=== PATIENT | female | born 1985 | race Asian ===

== ENCOUNTER 2017-01-15 16:02 | Emergency (ER) | payer OTHER ==
[2017-01-15 16:05] VITALS: BP 121/77; PULSE 96; TEMP 98.5; BMI 22.1
--- NOTE | 2017-01-15 17:08 | PDOC ---
History of Present Illness - General Chief Complaint: Sore Throat Stated Complaint: FEVER, SORE THROAT Time Seen by Provider: 01/15/17 16:07 History Source: Patient Exam Limitations: No Limitations - History of Present Illness Initial Comments: 01/15/17 17:05 31-year-old female presents the ED with complaints of sore throat and subjective fever since yesterday. Patient states her mother with similar symptoms and had to take Keflex took an antibiotic. Patient states is currently breast-feeding but denies any other complaints presently Timing/Duration: reports: other (Yesterday) Severity: reports: mild Possible Cause: Yes: no prior episodes Associated Symptoms: reports: fever/chills, nasal congestion Past History - Past Medical History Allergies/Adverse Reactions: Allergies Allergy/AdvReac Type Severity Reaction Status Date / Time No Known Allergies Allergy Verified 01/15/17 16:05 Home Medications: Ambulatory Orders NK [No Known Home Medication] 01/15/17 Asthma: No Cancer: No Cardiac Disorders: No Diabetes: No HTN: No Seizures: No Thyroid Disease: No Other medical history: denies - Reproductive History Is Patient Now?: No - Psycho/Social/Smoking Cessation Hx Anxiety: No Suicidal Ideation: No Smoking History: Never smoked Have you smoked in the past 12 months: No Information on smoking cessation initiated: No Hx Alcohol Use: No Drug/Substance Use Hx: No Substance Use Type: None Hx Substance Use Treatment: No Patient Lives Alone: No Lives with/in: spouse/SO Review of Systems - Review of Systems Able to Perform ROS?: Yes Constitutional: Yes: Fever HEENTM: Yes: Throat Pain Respiratory: No: Symptoms reported Cardiac (ROS): No: Symptoms Reported ABD/GI: No: Symptoms Reported Musculoskeletal: No: Symptoms Reported Integumentary: No: Symptoms Reported Neurological: No: Headache *Physical Exam - Vital Signs Last Vital Signs Temp Pulse Resp BP Pulse Ox 98.5 F 96 H 18 121/77 98 01/15/17 16:04 01/15/17 16:04 01/15/17 16:04 01/15/17 16:04 01/15/17 16:04 - Physical Exam General Appearance: Yes: Nourished, Appropriately Dressed. No: Apparent Distress HEENT: positive: EOMI, MAYNOR, TMs Normal, Pharyngeal Erythema (mild. no petechiae ). negative: Tonsillar Exudate, Tonsillar Erythema Neck: positive: Supple. negative: Lymphadenopathy (R), Lymphadenopathy (L) Respiratory/Chest: positive: Lungs Clear, Normal Breath Sounds. negative: Respiratory Distress, Accessory Muscle Use Cardiovascular: positive: Regular Rhythm, Regular Rate. negative: Murmur Integumentary: positive: Normal Color, Warm, Moist Neurologic: positive: Motor Strength 5/5 (ambulatory) Medical Decision Making - Medical Decision Making 01/15/17 17:07 Patient with subjective fever and sore throat since yesterday. Patient with mild erythema to the posterior pharynx. Patient ordered for rapid strep. 01/15/17 17:26 Rapid strep negative. Patient will be sent home with supportive care including plenty of fluids, soft foods and Tylenol as needed *DC/Admit/Observation/Transfer Diagnosis at time of Disposition: Sore throat - Discharge Dispostion Disposition: HOME Condition at time of disposition: Good - Referrals Referrals: Edwin Corrales MD [Primary Care Provider] - - Patient Instructions Printed Discharge Instructions: Sore Throat Additional Instructions: Strep test was negative. I advised her to drink plenty of fluids, soft nonabrasive foods and take Tylenol as needed for discomfort. If your culture comes back positive, you will receive a phone call in 2 days to start antibiotics.
== END 2017-01-15 17:41 | disposition home or self-care (01) ==
LOC: JERFT 16:02
DX: J02.9 Acute pharyngitis, unspecified (principal)
CPT/HCPCS: 87070; 87430; 99281-25

== ENCOUNTER 2017-07-14 18:42 | Emergency (ER) | payer OTHER ==
[2017-07-14 19:10] VITALS: BP 133/84; PULSE 89; TEMP 98.4; BMI 22.7
--- NOTE | 2017-07-14 21:13 | PDOC ---
History of Present Illness - General Chief Complaint: Vaginal Sxs Stated Complaint: VAGINAL PAIN Time Seen by Provider: 07/14/17 20:00 History Source: Patient Exam Limitations: No Limitations - History of Present Illness Initial Comments: 07/14/17 21:18 Itchiness of vaginal area History of present illness: Patient is a 31 year old female with no significant medical history here today complaining of itchiness of vaginal area labia majora minora for the last 2 days. Patient denies any vaginal discharge. Patient is sexually active with her . Patient denies any urinary symptoms , fever, abdominal pain or any dyspareunia. Patient denies any lesions on vaginal area. Patient denies any recent use of antibiotics. Patient is breast- feeding. Timing/Duration: intermittent (for 2 days) Severity: mild Associated Symptoms: reports: other (itchiness of labia minor/majora) Past History - Past Medical History Allergies/Adverse Reactions: Allergies Allergy/AdvReac Type Severity Reaction Status Date / Time No Known Allergies Allergy Verified 07/14/17 19:07 Home Medications: Ambulatory Orders NK [No Known Home Medication] 01/15/17 Asthma: No Cancer: No Cardiac Disorders: No Diabetes: No HTN: No Seizures: No Thyroid Disease: No - Suicide/Smoking/Psychosocial Hx Smoking History: Never smoked Have you smoked in the past 12 months: No Hx Alcohol Use: No Drug/Substance Use Hx: No Substance Use Type: None Hx Substance Use Treatment: No Review of Systems - Review of Systems Able to Perform ROS?: Yes Constitutional: No: Symptoms Reported HEENTM: No: Symptoms Reported Respiratory: No: Symptoms reported Cardiac (ROS): No: Symptoms Reported ABD/GI: No: Symptoms Reported : Yes: Other (itchiness of external vagina area X 2 dats). No: Burning, Dysuria, Discharge, Frequency, Flank Pain, Hematuria, Incontinence, Pain, Urgency Musculoskeletal: No: Symptoms Reported Integumentary: No: Symptoms Reported Neurological: No: Symptoms reported *Physical Exam - Vital Signs Last Vital Signs Temp Pulse Resp BP Pulse Ox 98.4 F 89 16 133/84 100 07/14/17 19:08 07/14/17 19:08 07/14/17 19:08 07/14/17 19:08 07/14/17 19:08 - Physical Exam General Appearance: Yes: Appropriately Dressed Respiratory/Chest: positive: Lungs Clear, Normal Breath Sounds. negative: Chest Tender, Respiratory Distress Cardiovascular: positive: Regular Rhythm, Regular Rate, S1, S2 Female Pelvic Exam: positive: cervical os closed, discharge (white thick ). negative: normal adnexa, normal size ovaries, CMT, lesions, Bartholin mass, Scalene Gland, adnexal tenderness, uterus, Urethra, vaginal bleeding Gastrointestinal/Abdominal: positive: Normal Bowel Sounds, Soft. negative: Tender, Organomegaly, Distended, Guarding, Rebound, Tenderness, Hernia, Mass, Hepatomegaly, Spleenomegaly Integumentary: positive: Normal Color Neurologic: positive: Alert, Normal Response Medical Decision Making - Medical Decision Making 07/14/17 21:20 Patient is a 31 year old female with no significant medical history here today complaining of itchiness of vaginal area labia majora minora for the last 2 days. Patient denies any vaginal discharge. Patient is sexually active with her . Patient denies any urinary symptoms, fever, abdominal pain or any dyspareunia. Patient denies any lesions on vaginal area. Patient denies any recent use of antibiotics. Patient is breast-feeding. Vaginal discharge external vaginal itchiness vaginitis lucia PLAN: urine hcg urinalyis chlamydia/GC amplification genital culture Laboratory Tests 07/14/17 07/14/17 21:00 21:09 Urine Color Straw Urine Appearance Clear Urine pH 5.0 Urine Protein Negative Urine Glucose (UA) Negative Urine Ketones Negative Urine Blood Negative Urine Nitrite Negative Urine Bilirubin Negative Urine Urobilinogen Negative Urine HCG, Qual Negative difucan 150 mg po now 07/14/17 21:50 *DC/Admit/Observation/Transfer Diagnosis at time of Disposition: Vaginitis due to Lucia - Discharge Dispostion Disposition: HOME Condition at time of disposition: Stable - Patient Instructions Additional Instructions: Follow-up with your grounding engineer for further evaluation as soon as possible Return to emergency room if symptoms worsen or new symptoms develop Do not have sexual relations for the next 5 days We will call you if any additional medication needs to be ordered due to pending lab results Patient voiced understanding of discharge instructions and all questions were answered
[2017-07-14 21:35] LABS: URINE APPEARANCE CLEAR; URINE BILIRUBIN NEGATIVE (NEGATIVE); URINE BLOOD NEGATIVE (NEGATIVE); URINE COLOR STRAW; URINE GLUCOSE (UA) NEGATIVE (NEGATIVE); URINE KETONE NEGATIVE (NEGATIVE); URINE NITRITE NEGATIVE (NEGATIVE); URINE PROTEIN NEGATIVE (NEGATIVE); URINE UROBILINOGEN NEGATIVE mg/dL (0.2-1.0)
[2017-07-14] MEDS ORDERED: FLUCONAZOLE 50 MG TABLET PO ONE (21:48)
[2017-07-14] MEDS ORDERED: FLUCONAZOLE 100 MG TABLET (UD) ONE (21:50)
[2017-07-14 23:02] LABS: URINE LEUK ESTERASE 1+ (NEGATIVE)
[2017-07-14 23:19] LABS: URINE BACTERIA FEW /hpf (NEGATIVE); URINE RBC 0-2 /hpf (0-3)
--- NOTE | 2017-07-18 07:24 | PDOC ---
Patient Follow-up (Call Back) - Post ED Follow - Up Chief Complaint: Vaginal Sxs Condition at time of discharge: Stable Disposition at time of original discharge: HOME Reason for Call Back: Abnwl. Microbiology (Pt with moderate amount of yeast on micro. Treated with diflucan in ED. No furthe treatment needed at this time.)
== END 2017-07-14 21:54 | disposition home or self-care (01) ==
LOC: JERFT 18:42
DX: B37.3 Candidiasis of vulva and vagina (principal)
CPT/HCPCS: 36415; 81003; 81015; 84703; 87070; 87086; 87205; 87491; 87591; 99281-25

== ENCOUNTER 2018-01-15 12:39 | Emergency (ER) | payer OTHER ==
[2018-01-15 12:47] VITALS: BP 120/76; PULSE 99; TEMP 98.4; BMI 23.0
--- NOTE | 2018-01-15 13:30 | PDOC ---
History of Present Illness - General Chief Complaint: Sore Throat Stated Complaint: THROAT PAIN Time Seen by Provider: 01/15/18 12:53 History Source: Patient Exam Limitations: No Limitations - History of Present Illness Initial Comments: 01/15/18 13:07 Patient is a 32-year-old female, denies any significant medical history currently on no medications presents for generalized body aches, sore throat, headache since yesterday. Patient reports on December 25 had similar symptoms saw PMD who started her on antibiotics, symptoms resolved, yesterday started having symptoms again. Patient denies any chest pain, is complaining of postnasal drip. Shortness of breath. No nausea vomiting or diarrhea. Past Medical History: Denies. Allergies: No known allergies Medications: None Family History: Non-contributory Social History: Denies smoking, alcohol use, or IVDU Review of Systems GENERAL/CONSTITUTIONAL: Tactile fever, body aches No weakness. No weight change. ] HEAD, EYES, EARS, NOSE AND THROAT: Watery eyes, postnasal drip, No change in vision. No ear pain or discharge. Sore throat CARDIOVASCULAR: No chest pain or shortness of breath. RESPIRATORY: No cough, wheezing, or hemoptysis. GASTROINTESTINAL: No nausea, vomiting, diarrhea or constipation. No rectal bleeding. GENITOURINARY: No dysuria, frequency, or change in urination. MUSCULOSKELETAL: No joint or muscle swelling or pain. No neck or back pain. SKIN AND BREASTS: No rash or easy bruising. NEUROLOGIC: No headache, vertigo, loss of consciousness, or loss of sensation. PSYCHIATRIC: No depression or anxiety. ENDOCRINE: No increased thirst. No abnormal weight change. HEMATOLOGIC/LYMPHATIC: No anemia, easy bleeding, or history of blood clots. ALLERGIC/IMMUNOLOGIC: No hives or skin allergy. No latex allergy. Physical Exam: GENERAL: The patient is awake, alert, and fully oriented, in no acute distress. EYES: Pupils equal, round and reactive to light, extraocular movements intact, sclera anicteric, conjunctiva clear. ENT: Ears normal, nares patent, oropharynx clear without exudates. Posterior throat, cobblestoning , Moist mucous membranes. No uvula deviation NECK: Normal range of motion, supple without lymphadenopathy, JVD, or masses. LUNGS: Breath sounds equal, clear to auscultation bilaterally. No wheezes, and no crackles. HEART: Regular rate and rhythm, normal S1 and S2 without murmur, rub or gallop. ABDOMEN: Soft, nontender, normoactive bowel sounds. No guarding, no rebound. No masses. No bruising or abrasions MUSCULOSKELETAL: Normal range of motion, no edema. No clubbing or cyanosis. No cords, erythema, or tenderness. No CVA Tenderness with fist palpation. NEUROLOGICAL: Cranial nerves II through XII grossly intact. Normal speech, normal gait. SKIN: Warm, Dry, normal turgor, no rashes or lesions noted. Past History - Past Medical History Allergies/Adverse Reactions: Allergies Allergy/AdvReac Type Severity Reaction Status Date / Time No Known Allergies Allergy Verified 07/14/17 19:07 Home Medications: Ambulatory Orders Loratadine [Claritin] 10 mg PO DAILY #30 tablet 01/15/18 Asthma: No Cancer: No Cardiac Disorders: No COPD: No DVT: No Diabetes: No HTN: No Seizures: No Thyroid Disease: No - Suicide/Smoking/Psychosocial Hx Smoking History: Never smoked Have you smoked in the past 12 months: No Information on smoking cessation initiated: No Hx Alcohol Use: No Drug/Substance Use Hx: No Substance Use Type: None Hx Substance Use Treatment: No *Physical Exam - Vital Signs Last Vital Signs Temp Pulse Resp BP Pulse Ox 98.4 F 99 H 20 120/76 100 01/15/18 12:45 01/15/18 12:45 01/15/18 12:45 01/15/18 12:45 01/15/18 12:45 Medical Decision Making - Medical Decision Making 01/15/18 13:36 A/P patient with tactile fever, sore throat, generalized aches and pains. Denies any urinary symptoms, no chest pain or shortness of breath mild nonproductive cough. High suspicion for viral illness however will send rapid strep and rapid influenza 01/15/18 14:07 Rapid strep and influenza both negative, we will send urinalysis and urine . 01/15/18 14:07 01/15/18 16:22 Laboratory Results - last 24 hr 01/15/18 14:10 Urine Color Yellow Urine Appearance Clear Urine pH 5.0 Ur Specific [place] 1.024 Urine Protein Negative Urine Glucose (UA) Negative Urine Ketones Trace H Urine Blood Negative Urine Nitrite Negative Urine Bilirubin Negative Urine Urobilinogen Negative Ur Leukocyte Esterase Negative Urine HCG, Qual Negative Patient with negative urinalysis, urine is negative, will DC patient home, supportive care, Claritin for postnasal drip. Primary care doctor if fever persists or generalized a scar persist tomorrow. *DC/Admit/Observation/Transfer Diagnosis at time of Disposition: Sore throat - Discharge Dispostion Disposition: HOME Condition at time of disposition: Stable Admit: No - Prescriptions Prescriptions: Loratadine [Claritin] 10 mg PO DAILY #30 tablet - Referrals Referrals: Edwin Corrales MD [Primary Care Provider] - - Patient Instructions Additional Instructions: 1. Increase fluid. 2. Pedialyte or Gatorade. 3. Please change toothbrush within 3 days , if sore throat persist follow-up with primary care doctor on Tuesday. Rapid strep, and rapid influenza are both negative, urinalysis and urine is negative 4. Warm saltwater gargles. 5. Please return to the ER unable to drink or eat, increased fever or other concerns. - Post Discharge Activity Forms/Work/School Notes: Back to Work
[2018-01-15 14:16] LABS: URINE APPEARANCE CLEAR; URINE BILIRUBIN NEGATIVE (<2.0 mg/dL); URINE BLOOD NEGATIVE (NEGATIVE); URINE COLOR YELLOW; URINE GLUCOSE (UA) NEGATIVE (NEGATIVE); URINE KETONE TRACE (NEGATIVE); URINE LEUK ESTERASE NEGATIVE (NEGATIVE); URINE NITRITE NEGATIVE (NEGATIVE); URINE PROTEIN NEGATIVE (NEGATIVE); URINE UROBILINOGEN NEGATIVE mg/dL (0.2-1.0)
[2018-01-15 14:25] LABS: HCG,QUALITATIVE URINE NEGATIVE
== END 2018-01-15 14:38 | disposition home or self-care (01) ==
LOC: JERFT 12:39
DX: J02.9 Acute pharyngitis, unspecified (principal)
CPT/HCPCS: 81003; 84703; 87070; 87430; 87804; 99281-25

== ENCOUNTER 2018-07-30 16:43 | Emergency (ER) | payer OTHER ==
[2018-07-30 16:46] VITALS: TEMP 97.9; BMI 22.3
--- NOTE | 2018-07-30 17:11 | PDOC ---
History of Present Illness - General Chief Complaint: Pain Stated Complaint: PAIN/13 WKS Time Seen by Provider: 07/30/18 17:10 History Source: Patient - History of Present Illness Initial Comments: 07/30/18 17:43 The patient is a 32 year old at a self-reported 32 weeks gestation who presents to our ED c/o abdominal pain. Pain is cramping + pressure and started yesterday morning and runs from her abdomen to her back and initially resolved. Then this morning, pain started again and has been constant since that time. Denies any associated nausea/vomiting, diarrhea/constipation. Last bowel movement was prior to presentation and was normal. Patient states she was evaluated by her a p manager (Dr. Palma) on 07/18 and was told everything was normal. She also had an ultrasound after her appointment but does not know the results. 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 Palma Past History - Past Medical History Allergies/Adverse Reactions: Allergies Allergy/AdvReac Type Severity Reaction Status Date / Time No Known Allergies Allergy Verified 07/30/18 16:46 Home Medications: Ambulatory Orders Nitrofurantoin Monohyd/M-Cryst [Macrobid -] 100 mg PO BID #14 capsule 07/30/18 Asthma: No Cancer: No Cardiac Disorders: No COPD: No DVT: No Diabetes: No HTN: No Seizures: No Thyroid Disease: No - Suicide/Smoking/Psychosocial Hx Smoking History: Never smoked Have you smoked in the past 12 months: No Hx Alcohol Use: No Drug/Substance Use Hx: No Substance Use Type: None Hx Substance Use Treatment: No Review of Systems - Review of Systems Constitutional: No: Chills, Fever HEENTM: No: Blurred Vision, Double Vision Respiratory: No: Cough, Shortness of Breath Cardiac (ROS): No: Chest Pain, Lightheadedness, Palpitations, Syncope ABD/GI: Yes: Abdominal cramping. No: Constipated, Diarrhea, Nausea, Vomiting *Physical Exam - Vital Signs Last Vital Signs Temp Pulse Resp BP Pulse Ox 97.9 F 100 H 18 113/57 L 99 07/30/18 16:44 07/30/18 16:44 07/30/18 16:44 07/30/18 16:44 07/30/18 16:44 - Physical Exam General Appearance: Yes: Nourished, Appropriately Dressed HEENT: positive: Normal Voice, Hearing Grossly Normal Neck: positive: Normal Thyroid, Supple Respiratory/Chest: positive: Lungs Clear, Normal Breath Sounds. negative: Labored Respiration, Rapid RR Cardiovascular: positive: S1, S2 Vascular Pulses: Dorsalis-Pedis (R): 2+, Doralis-Pedis (L): 2+ Female Pelvic Exam: positive: cervical os closed. negative: adnexal tenderness , vaginal bleeding Gastrointestinal/Abdominal: positive: Normal Bowel Sounds, Soft. negative: Distended, Guarding, Rebound, Tenderness, Hernia, Mass Musculoskeletal: negative: CVA Tenderness (R), CVA Tenderness (L) Extremity: positive: Normal Capillary Refill, Normal Inspection Integumentary: positive: Normal Color, Dry, Warm ED Treatment Course - LABORATORY CBC & Chemistry Diagram: 07/30/18 18:10 07/30/18 18:10 Medical Decision Making - Medical Decision Making 07/30/18 17:48 32 year old female @ self reported 13 weeks gestation with cramping abdominal pain. No h/o vaginal bleeding. Mildly tachycardic (HR 100) @ presentation. DDx: ectopic , ovarian torsion, threatened AB, gastritis, physiologic pains of . Will obtain basic labs, B-HCG, Transvaginal U/S, pelvic exam. Patient declining pain medication at this time. 07/30/18 19:02 Pelvic exam shows closed cervical os, physiologic discharge, no CMT, non tender adnexa. 07/30/18 20:48 UA shows 2+ leukocyte esterase, 41 WBC. Will treat with Nitrofurantoin No proteinuria B-HCG 56, 178 07/30/18 21:12 TVUS shows IUP @ 14 weeks, HR 144. No free fluid, no adenxal masses Patient reassessed @ bedside Tachycardia resolved Symptomatically improved. Will discharge home with return precautions, a p manager follow-up and Macrobid prescription. I discussed the physical exam findings, ancillary test results and final diagnoses with the patient. I answered all of the patient's questions. The patient was satisfied with the care received and felt comfortable with the discharge plan and treatment plan. The patient will return to the Emergency Department with any new, persistent or worsening symptoms. *DC/Admit/Observation/Transfer Diagnosis at time of Disposition: Abdominal pain - Discharge Dispostion Disposition: HOME Condition at time of disposition: Good Decision to Admit order: No - Prescriptions Prescriptions: Nitrofurantoin Monohyd/M-Cryst [Macrobid -] 100 mg PO BID #14 capsule - Referrals - Patient Instructions Printed Discharge Instructions: DI for Urinary Tract Infection (UTI) Additional Instructions: You were diagnosed with a urinary tract infection. We have sent an antibiotic to your pharmacy. Please take the entire prescribed course. Follow-up with Dr. Palma in the next 1 week. Return to the Emergency Department for any new/worsening/concerning symptoms. - Post Discharge Activity
[2018-07-30 18:17] LABS: BASO % 0.3 % (0-2.0); EOS % 1.8 % (0-4.5); HEMATOCRIT 35.8 % (32.4-45.2); HEMOGLOBIN 12.7 GM/dL (10.7-15.3); LYMPH % 16.4 % (8-40); MCH 30.4 pg (25.7-33.7); MCHC 35.4 g/dl (32.0-36.0); MEAN CELL VOLUME 85.8 fl (80-96); MEAN PLT VOLUME 8.2 fl (7.5-11.1); MONO % 5.4 % (3.8-10.2); NEUT % 76.1 % (42.8-82.8); PLATELET COUNT 209 K/MM3 (134-434); RBC 4.18 M/mm3 (3.60-5.2); RDW 15.3 % (11.6-15.6); WHITE BLOOD COUNT 9.2 K/mm3 (4.0-10.0)
[2018-07-30 18:56] LABS: ALBUMIN 3.4 g/dl (3.4-5.0); ALK PHOS 76 U/L (45-117); ANION GAP 11 MMOL/L (8-16); BILIRUBIN,TOTAL 0.4 mg/dL (0.2-1); BLOOD UREA NITROGEN 6 mg/dL (7-18); CALCIUM 8.4 mg/dL (8.5-10.1); CHLORIDE 106 mmol/L (98-107); CO2 24 mmol/L (21-32); CREATININE 0.5 mg/dL (0.55-1.3); GLUCOSE,RANDOM 76 mg/dL (74-106); POTASSIUM 3.6 mmol/L (3.5-5.1); SGOT/AST 15 U/L (15-37); SGPT/ALT 12 U/L (13-61); SODIUM 140 mmol/L (136-145)
[2018-07-30 19:09] LABS: URINE APPEARANCE SLCLOUDY; URINE BILIRUBIN NEGATIVE (<2.0 mg/dL); URINE COLOR YELLOW; URINE GLUCOSE (UA) NEGATIVE (NEGATIVE); URINE KETONE NEGATIVE (NEGATIVE); URINE LEUK ESTERASE 2+ (NEGATIVE); URINE NITRITE NEGATIVE (NEGATIVE); URINE PROTEIN NEGATIVE (NEGATIVE); URINE UROBILINOGEN NEGATIVE mg/dL (0.2-1.0)
[2018-07-30 19:17] LABS: EPI CELLS FEW /HPF (FEW); URINE HYALINE CAST 3 /lpf; URINE MUCUS MODERATE
--- NOTE | 2018-07-30 19:26 | PDOC ---
Attending Attestation - Resident Resident Name: Tammy Monet - ED Attending Attestation I have performed the following: I have examined & evaluated the patient, The case was reviewed & discussed with the resident, I agree w/resident's findings & plan, Exceptions are as noted - HPI HPI: 07/30/18 19:25 32-year-old female who presents with pelvic cramping during her - Physicial Exam PE: 07/30/18 19:26 Well-nourished well-developed 32-year-old female. Head normocephalic/atraumatic. Neck supple Lungs are clear to auscultation. CVS regular rate and rhythm S1, S2 Abdomen no rebound or guarding. Pelvic exam done by Dr. Monet and she reports cervix is closed, no clots in the vaginal vault ext no edema skin warm and dry neuro axox3.no gross focal neuro deficits psych appropriate - Medical Decision Making 07/30/18 21:46 pelvic US sl iup 14 weeks pt has UTI and started on ABX will follow up with Dr Palma
[2018-07-30 21:09] VITALS: BP 97/55; PULSE 82
== END 2018-07-30 22:19 | disposition home or self-care (01) ==
LOC: JER 16:43
DX: O26.891 Other specified pregnancy related conditions, first trimester (principal); O23.41 Unspecified infection of urinary tract in pregnancy, first trimester; Z3A.13 13 weeks gestation of pregnancy
CPT/HCPCS: 36415; 76801-TC; 80053; 81003; 81015; 84702; 85025; 86850; 86900; 86901; 87086; 99283-25

== ENCOUNTER 2023-05-10 10:07 | Emergency (ER) | payer OTHER ==
[2023-05-10 10:12] VITALS: BP 114/71; PULSE 77; RESP 18; TEMP 98; BMI 23.8
[2023-05-10] MEDS ORDERED: SODIUM CHLORIDE 0.9% 500 ML INFUS.BAG IV ONE (11:29)
[2023-05-10] MEDS ORDERED: ACETAMINOPHEN 1000 MG/100 ML BAG IVPB ONE (11:29)
[2023-05-10 11:51] LABS: PH,URINE 7.5 (5.0-8.0); URINE APPEARANCE CLEAR; URINE BILIRUBIN NEGATIVE (NEGATIVE); URINE COLOR YELLOW; URINE GLUCOSE (UA) NEGATIVE (NEGATIVE); URINE KETONE TRACE (NEGATIVE); URINE LEUK ESTERASE NEGATIVE (NEGATIVE); URINE NITRITE NEGATIVE (NEGATIVE); URINE PROTEIN NEGATIVE (NEGATIVE)
[2023-05-10] MEDS ORDERED: ACETAMINOPHEN INJECTION 100 ML IVPB ONE (11:53)
[2023-05-10 13:17] LABS: BASO % 0.4 % (0-2.0); EOS % 1.2 % (0-4.5); HEMATOCRIT 38.2 % (32.4-45.2); HEMOGLOBIN 12.8 GM/dL (10.7-15.3); LYMPH % 26.8 % (8-40); MCH 28.1 pg (25.7-33.7); MCHC 33.5 g/dl (32.0-36.0); MEAN CELL VOLUME 83.7 fl (80-96); MEAN PLT VOLUME 8.4 fl (7.5-11.1); MONO % 6.4 % (3.8-10.2); NEUT % 65.2 % (42.8-82.8); PLATELET COUNT 190 10^3/uL (134-434); RBC 4.56 M/mm3 (3.60-5.2); RDW 17.5 % (11.6-15.6); WHITE BLOOD COUNT 6.5 K/mm3 (4.0-10.0)
[2023-05-10 13:26] LABS: POTASSIUM 4.8 mmol/L (3.5-5.1)
[2023-05-10 13:31] LABS: ALBUMIN 3.4 g/dl (3.4-5.0); BLOOD UREA NITROGEN 5.3 mg/dL (7-18); CALCIUM 8.8 mg/dL (8.5-10.1)
[2023-05-10 13:34] LABS: CREATININE 0.6 mg/dL (0.55-1.3)
[2023-05-10 13:36] LABS: BILIRUBIN,TOTAL 0.6 mg/dL (0.2-1); TOT PROT 6.9 g/dl (6.4-8.2)
== END 2023-05-10 15:30 | disposition home or self-care (01) ==
LOC: JER 10:07
PROC: 3E033NZ Introduction of Analgesics, Hypnotics, Sedatives into Peripheral Vein, Percutaneous Approach (ICD-10-PCS; principal; 2023-05-10)
DX: O26.891 Other specified pregnancy related conditions, first trimester (principal); R10.30 Lower abdominal pain, unspecified; Z3A.09 9 weeks gestation of pregnancy
CPT/HCPCS: 36415; 76817-TC; 80053; 81003; 84702; 84703; 85025; 99284-25